=== PATIENT | female | born 1930 | race Caucasian/White ===

== ENCOUNTER 2016-08-01 19:17 | Emergency (ER) | payer MEDICARE ==
[2016-08-01] MEDS ORDERED: Sodium Chloride 0.9% 1000 ML 1,000 ML IV STA (19:58)
[2016-08-01] MEDS ORDERED: Phenergan 25 MG INJ IV ONE (19:58)
[2016-08-01] MEDS ORDERED: BABY ASPIRIN 81 MG CHEW PO ONE (19:58)
--- NOTE | 2016-08-01 20:02 | ERPHSYRPT ---
- History of Present Illness Time Seen by Provider: 08/01/16 19:50 Source: patient Exam Limitations: no limitations Patient Subjective Stated Complaint: pt states she has been feeling dizzy for the last several days. [id number] she has been on an antibiotic for uti since saturday. dr cali told her at that time that she had been in afib more often than not. Triage Nursing Assessment: pt alert and oriented. answers questions approp. respirations nonlabored, lungs cta. pt ambulatory with slightly unsteady gait. speech clear. bilat ext strength strong and equal. pupils equal and reactive. Physician History: FOR THE PAST 2 WEEKS PT HAS HAD INTERMITTENT SHORTNESS OF AIR WITHOUT CHEST PAIN ; FOR THE PAST WEEK GENERALIZED WEAKNESS, DIZZINESS(DYSEQUILIBRIUM), DIAPHORESIS , NAUSEA, AND IMPENDING FAINT. PT WENT TO HER DR 2 DAYS AGO AND WAS DIAGNOSED WITH A UTI AND PRESCRIBED BACTRIM. Allergies/Adverse Reactions: amiodarone Allergy (Verified 09/27/15 06:56) Home Medications: Acetaminophen [Tylenol] 650 mg PO Q6HPRN PRN 09/27/15 [History] Amlodipine Besylate 5 mg [Norvasc 5 mg] 2.5 mg PO BID 09/27/15 [History] Aspirin 81 g PO DAILY 09/27/15 [History] Levothyroxine Sodium [Synthroid] 100 mcg PO DAILY 09/27/15 [History] Metoprolol Tartrate 50 mg [Lopressor 50 MG] 50 mg PO BID 09/27/15 [History ] Nitroglycerin 0.4 mg Tablet [Nitrostat 0.4 MG Tablet] 0.4 mg SL Q5MIN PRN MR X 3 PRN 09/27/15 [History] Rivaroxaban [Xarelto] 15 mg PO EVENING MEAL 09/27/15 [History] Omeprazole 20 MG [Prilosec 20 mg] 20 mg PO DAILY 08/01/16 [History] Sotalol HCl [Sotalol AF] 80 mg PO BID 08/01/16 [History] Hx Tetanus, Diphtheria Vaccination/Date Given: No Hx Influenza Vaccination/Date Given: Yes (2015) Hx Pneumococcal Vaccination/Date Given: Yes (2014) - Review of Systems Constitutional: Weakness (GENERALIZED) Respiratory: Dyspnea Cardiac: No Chest Pain Abdominal/Gastrointestinal: Nausea Musculoskeletal: No Back Pain Neurological: Dizziness, Other (IMPENDING FAINT), No Headache Endocrine: Excessive Sweating All Other Systems: Reviewed and Negative - Past Medical History Pertinent Past Medical History: Yes Neurological History: No Pertinent History, Other ENT History: No Pertinent History Cardiac History: Arrhythmia, Coronary Artery Disease, Hypertension, Other Respiratory History: Pulmonary Embolism Endocrine Medical History: Hypothyroidism Musculoskeletal History: Arthritis GI Medical History: Diverticulosis History: No Pertinent History Psycho-Social History: No Pertinent History Female Reproductive Disorders: Fibroids Other Medical History: Pacemaker in 2013 - Past Surgical History Past Surgical History: Yes Neuro Surgical History: No Pertinent History Cardiac: Cardiac Catheterization, Pacemaker Respiratory: No Pertinent History Gastrointestinal: Appendectomy, Cholecystectomy Genitourinary: No Pertinent History Musculoskeletal: Orthopedic Surgery Female Surgical History: Hysterectomy Other Surgical History: arthroscopic left knee - Social History Smoking Status: Never smoker Exposure to second hand smoke: No Drug Use: none Patient Lives Alone: Yes - Female History Hx Last Menstrual Period: post Hx Now: No - Nursing Vital Signs Nursing Vital Signs: Initial Vital Signs Temperature 97.4 F Temperature Source Oral Pulse Rate 86 Respiratory Rate 18 Blood Pressure [] 139/69 Pain Intensity 0 - Physical Exam General Appearance: no apparent distress, alert Eye Exam: PERRL/EOMI Ears, Nose, Throat Exam: TMs normal, pharynx normal, moist mucous membranes Neck Exam: normal inspection Respiratory Exam: lungs clear, airway intact Cardiovascular Exam: normal heart sounds, normal peripheral pulses Gastrointestinal/Abdomen Exam: soft, normal bowel sounds Back Exam: normal range of motion Extremity Exam: normal inspection, No pedal edema Neurologic Exam: alert, cooperative Skin Exam: warm, dry Oxygen Delivery: Room Air - Course Nursing assessment & vital signs reviewed: Yes EKG Interpreted by Me: RATE (78), Other (PACED RHYTHM) - Radiology Exams Chest X-ray Interpretation: Interpreted by me, No Pneumonia Ordered Tests: Active Orders 24 hr Category Date Time Status Merchandise For Resale Purchasing Agent STAT Care 08/01/16 19:58 Active EKG-ER Only STAT Care 08/01/16 19:58 Active IV Insertion STAT Care 08/01/16 19:58 Active Oxygen-ED Only NASAL CANNULA 2 lpm Care 08/01/16 19:58 Active Pulse Oximetry (ED) STAT Care 08/01/16 19:58 Active CHEST 1 VIEW (PORTABLE) Stat Exams 08/01/16 19:59 Taken AMYLASE Stat Lab 08/01/16 20:04 Completed CBC W DIFF Stat Lab 08/01/16 20:04 Completed CMP Stat Lab 08/01/16 20:04 Completed LIPASE Stat Lab 08/01/16 20:04 Completed MAGNESIUM Stat Lab 08/01/16 20:04 Completed NT PRO BNP Stat Lab 08/01/16 20:04 Completed PROTIME WITH INR Stat Lab 08/01/16 20:04 Completed PTT Stat Lab 08/01/16 20:04 Completed TROPONIN Q3H Lab 08/01/16 20:04 Completed TROPONIN Q3H Lab 08/01/16 23:00 Ordered TROPONIN Q3H Lab 08/02/16 02:00 Ordered TROPONIN Q3H Lab 08/02/16 05:00 Ordered TROPONIN Q3H Lab 08/02/16 08:00 Ordered UA W/ MICROSCOPIC Stat Lab 08/01/16 20:04 Completed Urine Triage Profile Stat Lab 08/01/16 20:04 Completed Medication Summary Generic Name Dose Route Start Last Admin Trade Name Freq PRN Reason Stop Dose Admin Sodium Chloride 1,000 mls @ 999 mls/hr 08/01/16 19:58 08/01/16 20:13 Sodium Chloride 0.9% 1000 Ml IV 08/01/16 20:58 999 mls/hr .Q1H1M STA Administration Discontinued Medications Generic Name Dose Route Start Last Admin Trade Name Freq PRN Reason Stop Dose Admin Aspirin 324 mg 08/01/16 19:58 08/01/16 20:13 Baby Aspirin 81 Mg Chew PO 08/01/16 19:59 324 mg STAT ONE Administration Aspirin Confirm 08/01/16 20:07 Baby Aspirin 81 Mg Chew Administered 08/01/16 20:08 Dose 324 mg .ROUTE .STK-MED ONE Sodium Chloride Confirm 08/01/16 20:07 Sodium Chloride 0.9% 1000 Ml Administered 08/01/16 20:08 Dose 1,000 mls @ ud .ROUTE .STK-MED ONE Promethazine HCl 12.5 mg 08/01/16 19:58 08/01/16 20:13 Phenergan 25 Mg Inj IV 08/01/16 19:59 12.5 mg STAT ONE Administration Promethazine HCl Confirm 08/01/16 20:07 Phenergan 25 Mg Inj Administered 08/01/16 20:08 Dose 25 mg .ROUTE .STK-MED ONE Lab/Rad Data: Laboratory Result Diagrams 08/01/16 20:04 08/01/16 20:04 Laboratory Results 08/01/16 08/01/16 08/01/16 Range/Units 20:04 20:04 20:04 WBC (4.0-10.5) K/mm3 RBC (4.1-5.4) M/mm3 Hgb (12.0-16.0) gm/dl Hct (35-47) % MCV (78-100) fl MCH (26-32) pg MCHC (32-36) g/dl RDW (11.5-14.0) % Plt Count (150-450) K/mm3 MPV (6-9.5) fl Gran % (36.0-66.0) % Lymphocytes % (24.0-44.0) % Monocytes % (0.0-12.0) % Eosinophils % (0.00-5.0) % Basophils % (0.0-0.4) % Basophils # (0-0.4) INR (0.8-3.0) PTT (25.3-37.0) SECONDS Sodium (136-145) mEq/L Potassium (3.5-5.1) mEq/L Chloride (98-107) mEq/L Carbon Dioxide (21-32) mEq/L Anion Gap (5-15) MEQ/L BUN (9-20) mg/dL Creatinine (0.55-1.30) mg/dl Estimated GFR ML/MIN Glucose (70-110) MG/DL Calcium (8.5-10.1) mg/dL Magnesium (1.8-2.4) mg/dL Total Bilirubin (0.2-1.0) mg/dL AST (15-37) U/L ALT (12-78) U/L Alkaline Phosphatase (46-116) U/L Troponin I 0.017 (0.000-0.056) ng/ml NT-Pro-B Natriuret Pep (0-450) pg/ml Serum Total Protein (6.4-8.2) gm/dL Albumin (3.4-5.0) g/dL Amylase (25-115) U/L Lipase (73-393) U/L Ur Collection Type CLEAN CATCH Urine Color YELLOW (YELLOW) Urine Appearance CLEAR (CLEAR) Urine pH 6.0 (5-6) Ur Specific [place] 1.025 (1.005-1.025) Urine Protein NEGATIVE (Negative) Urine Glucose (UA) NEGATIVE (NEGATIVE) mg/dL Urine Ketones NEGATIVE (NEGATIVE) Urine Nitrite NEGATIVE (NEGATIVE) Urine Bilirubin NEGATIVE (NEGATIVE) Urine Urobilinogen 0.2 (0-1) mg/dL Urine WBC (Auto) TRACE (NEGATIVE) Urine RBC (Auto) NEGATIVE (0-5) Josh/ul Urine Microscopic RBC 0-2 (0-2) /HPF Urine Microscopic WBC 2-5 (0-5) /HPF Ur Epithelial Cells MODERATE (FEW) /HPF Urine Bacteria FEW (NEGATIVE) /HPF Urine Opiates Level NEG. (NEGATIVE) Ur Methadone NEG. (NEGATIVE) Urine Barbiturates NEG. (NEGATIVE) Ur Phencyclidine (PCP) NEG. (NEGATIVE) Urine Amphetamine NEG. (NEGATIVE) U Benzodiazepine Level NEG. (NEGATIVE) Urine Cocaine NEG. (NEGATIVE) Urine Marijuana (THC) NEG. (NEGATIVE) Specimen Received 08/01/16199908/01/16 08/01/16 08/01/16 Range/Units 20:04 20:04 20:04 WBC 6.5 (4.0-10.5) K/mm3 RBC 4.26 (4.1-5.4) M/mm3 Hgb 13.2 (12.0-16.0) gm/dl Hct 40.4 (35-47) % MCV 94.8 (78-100) fl MCH 31.0 (26-32) pg MCHC 32.7 (32-36) g/dl RDW 12.1 (11.5-14.0) % Plt Count 256 (150-450) K/mm3 MPV 9.7 H (6-9.5) fl Gran % 49.8 (36.0-66.0) % Lymphocytes % 29.4 (24.0-44.0) % Monocytes % 16.4 H (0.0-12.0) % Eosinophils % 3.9 (0.00-5.0) % Basophils % 0.5 (0.0-0.4) % Basophils # 0.03 (0-0.4) INR 1.16 (0.8-3.0) PTT 32.3 (25.3-37.0) SECONDS Sodium 135 L (136-145) mEq/L Potassium 3.7 (3.5-5.1) mEq/L Chloride 104 (98-107) mEq/L Carbon Dioxide 23.7 (21-32) mEq/L Anion Gap 10.6 (5-15) MEQ/L BUN 14 (9-20) mg/dL Creatinine 1.12 (0.55-1.30) mg/dl Estimated GFR 49 ML/MIN Glucose 116 H (70-110) MG/DL Calcium 8.1 L (8.5-10.1) mg/dL Magnesium 1.9 (1.8-2.4) mg/dL Total Bilirubin 0.3 (0.2-1.0) mg/dL AST 14 L (15-37) U/L ALT 11 L (12-78) U/L Alkaline Phosphatase 85 (46-116) U/L Troponin I (0.000-0.056) ng/ml NT-Pro-B Natriuret Pep 323 (0-450) pg/ml Serum Total Protein 6.3 L (6.4-8.2) gm/dL Albumin 3.3 L (3.4-5.0) g/dL Amylase 65 (25-115) U/L Lipase 229 (73-393) U/L Ur Collection Type Urine Color (YELLOW) Urine Appearance (CLEAR) Urine pH (5-6) Ur Specific [place] (1.005-1.025) Urine Protein (Negative) Urine Glucose (UA) (NEGATIVE) mg/dL Urine Ketones (NEGATIVE) Urine Nitrite (NEGATIVE) Urine Bilirubin (NEGATIVE) Urine Urobilinogen (0-1) mg/dL Urine WBC (Auto) (NEGATIVE) Urine RBC (Auto) (0-5) Josh/ul Urine Microscopic RBC (0-2) /HPF Urine Microscopic WBC (0-5) /HPF Ur Epithelial Cells (FEW) /HPF Urine Bacteria (NEGATIVE) /HPF Urine Opiates Level (NEGATIVE) Ur Methadone (NEGATIVE) Urine Barbiturates (NEGATIVE) Ur Phencyclidine (PCP) (NEGATIVE) Urine Amphetamine (NEGATIVE) U Benzodiazepine Level (NEGATIVE) Urine Cocaine (NEGATIVE) Urine Marijuana (THC) (NEGATIVE) Specimen Received - Departure Time of Disposition: 20:52 Departure Disposition: Home Clinical Impression: DIZZINESS, UTI, DYSPNEA, A.FIB, HTN, ARTHRITIS, HYPOTHYROIDISM Condition: Fair Critical Care Time: No Instructions: Urinary Tract Infection (UTI) Additional Instructions: FOLLOW UP WITH PRIVATE DOCTOR TOMORROW. CONTINUE BACTRIM. Prescriptions: Meclizine HCl 25 mg [Antivert 25 mg] 25 mg PO Q8H PRN PRN #30 tablet PRN Reason: Dizziness
[2016-08-01] MEDS ORDERED: BABY ASPIRIN 81 MG CHEW ONE (20:07)
[2016-08-01] MEDS ORDERED: Phenergan 25 MG INJ ONE (20:07)
[2016-08-01] MEDS ORDERED: Sodium Chloride 0.9% 1000 ML 1,000 ML ONE (20:07)
[2016-08-01 20:10] LABS: BASOPHIL % 0.5 % (0.0-0.4); Eosinophil % 3.9 % (0.00-5.0); Granulocytes % 49.8 % (36.0-66.0); Lymphocytes % 29.4 % (24.0-44.0); Mean Cell Volume 94.8 fl (78-100); Mean Platelet Volume 9.7 fl (6-9.5); Monocytes % 16.4 % (0.0-12.0); Platelet Count 256 K/mm3 (150-450); Red Blood Count 4.26 M/mm3 (4.1-5.4); Red Cell Distribution Width 12.1 % (11.5-14.0); White Blood Count 6.5 K/mm3 (4.0-10.5)
[2016-08-01 20:15] LABS: INR 1.16 (0.8-3.0); PROTIME 12.9 SECONDS (9.95-12.35)
[2016-08-01 20:18] LABS: PTT 32.3 SECONDS (25.3-37.0)
[2016-08-01 20:30] LABS: ALBUMIN 3.3 g/dL (3.4-5.0); ANION GAP 10.6 MEQ/L (5-15); BILIRUBIN,TOTAL 0.3 mg/dL (0.2-1.0); Carbon Dioxide 23.7 mEq/L (21-32); MAGNESIUM 1.9 mg/dL (1.8-2.4); Potassium 3.7 mEq/L (3.5-5.1); Total Protein 6.3 gm/dL (6.4-8.2)
[2016-08-01 20:34] LABS: Bacteria FEW /HPF (NEGATIVE); COMPLETE URINE MICROSCOPIC? YES; Collection Type CLEAN CATCH; Epithelial Cells MODERATE /HPF (FEW)
[2016-08-01 21:11] VITALS: BP 134/62; PULSE 76; O2SAT 97
--- NOTE | 2016-08-02 08:32 | XRAY ---
Indication: Short of breath and weakness. Comparison: September 27, 2015 Portable chest better inflated today again with scattered calcified granulomas. No focal infiltrate, consolidation, or large effusion. Heart is not enlarged with stable left-sided dual-lead pacemaker. Bony thorax intact again with osteopenia and degenerative changes. Impression: Nonacute chest again with chronic features.
== END 2016-08-01 21:11 | disposition home or self-care (01) ==
LOC: ED 19:17
DX: R42 Dizziness and giddiness (principal); N39.0 Urinary tract infection, site not specified; R06.00 Dyspnea, unspecified; I48.91 Unspecified atrial fibrillation; I10 Essential (primary) hypertension; M19.90 Unspecified osteoarthritis, unspecified site; E03.9 Hypothyroidism, unspecified; I25.10 Atherosclerotic heart disease of native coronary artery without angina pectoris; Z79.899 Other long term (current) drug therapy; Z79.891 Long term (current) use of opiate analgesic; Z79.01 Long term (current) use of anticoagulants
CPT/HCPCS: 36000; 36415; 71010; 80053; 80307; 81000; 82150; 83690; 83735; 83880; 84484; 85025; 85610; 85730; 93005; 93041; 96360; 96374; 99284; J2550

== ENCOUNTER 2018-09-09 11:21 | Emergency (ER) | payer MEDICARE ==
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
--- NOTE | 2018-09-09 13:08 | XRAY ---
Indication: Pain following fall 2 days ago. Comparison: None 3 views of the cervical spine demonstrates normal alignment with vertebral body heights/disc spaces maintained and minimal C4-C6 anterior endplate spurring. No other bony, articular, or soft tissue abnormalities.
[2018-09-09 13:13] VITALS: BP 151/91; PULSE 66
[2018-09-09 13:15] VITALS: O2SAT 99
== END 2018-09-09 13:31 | disposition home or self-care (01) ==
LOC: ED 11:21
DX: S00.83XA Contusion of other part of head, initial encounter (principal); W19.XXXA Unspecified fall, initial encounter; E03.9 Hypothyroidism, unspecified; I10 Essential (primary) hypertension; M19.90 Unspecified osteoarthritis, unspecified site; I25.10 Atherosclerotic heart disease of native coronary artery without angina pectoris; Z86.711 Personal history of pulmonary embolism; Z95.0 Presence of cardiac pacemaker; Z79.899 Other long term (current) drug therapy; M25.561 Pain in right knee
CPT/HCPCS: 72040; 99283